=== PATIENT | female | born 2000 | race African-American/Black ===

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

== ENCOUNTER 2018-06-12 11:30 | Inpatient (IN) | payer MEDICAID ==
[~2018-06-12] VITALS: Ht 165.1 cm; Wt 97.1 kg
[~2018-06-12 11:30] MED LIST changes: +ALBUTEROL SULF8.5 GM INH; +PREDNISONE20 MG ORAL; +PROMETHAZINE-C118 M1 ORAL
[2018-06-12 11:32] VITALS: BP 135/77
--- NOTE | 2018-06-12 11:32 | NUR ---
ED Nurse Note: Pt from home and brought in by ambulance in due to SOB x 1 hour. Pt has asthma attack but states she is not taking medications at home. Albuterol 5mg given by EMS en route. Pt still wheezing,pt is AAO x4, ambulatory with SOB at rest. Wheezing noted upon auscultation.
[2018-06-12] MEDS ORDERED: Ipratropium 0.02% Inh Soln 2.5ml UD ONE (11:37)
[2018-06-12] MEDS ORDERED: Albuterol ud Inhalation ONE (11:37)
[2018-06-12] MEDS ORDERED: Solu-MEDROL 125mg Inj IVP ONE (11:45)
[2018-06-12] MEDS ORDERED: Albuterol ud Inhalation HHN ONE ×3 (11:45→13:15)
[2018-06-12] MEDS ORDERED: Ipratropium 0.02% Inh Soln 2.5ml UD HHN ONE (11:45)
--- NOTE | 2018-06-12 11:56 | NUR ---
ED Nurse Note: Blood and flu swab sent.
[2018-06-12 12:07] LABS: BASOPHILS % (AUTO) 0.9 % (0.0-2.0); EOSINOPHILS % (AUTO) 3.2 % (0.0-3.0); HEMATOCRIT 42.1 % (37.0-47.0); HEMOGLOBIN 13.2 G/DL (12.0-16.0); LYMPHOCYTES % (AUTO) 22.7 % (20.0-45.0); MEAN CORPUSCULAR VOLUME 80 FL (80-99); MONOCYTES % (AUTO) 7.3 % (1.0-10.0); PLATELET COUNT 204 K/UL (150-450); RED BLOOD COUNT 5.27 M/UL (4.20-5.40); RED CELL DISTRIBUTION WIDTH 14.8 % (11.6-14.8)
[2018-06-12 12:13] LABS: INR 1.1 (0.9-1.1)
--- NOTE | 2018-06-12 12:14 | Emergency Room Report ---
History of Present Illness General Chief Complaint: Dyspnea/Respdistress Source: Patient Present Illness HPI Patient has 3-4 days of increased dyspnea. She has wheezing. She's been having a cough also. She gets out of breath with just a few steps. She's been intubated when she was in fourth grade. Recently she's been taking care of the asthma before it gets that severe. Paramedics gave the patient a breathing treatment. This helped her quite a bit but she still is quite tight. She denies any fevers or chills. She has been coughing up phlegm that has some color. There is no hemoptysis. She's also complaining about slight pain in her upper back. This is worse with coughing and with deep breathing. Pain in upper back rated 8/10, aching. No fevers, chills, NVD, dysuria, abdominal pain, headache, rashes, joint pain, depression. LNMP 3/2. Not believe she is . Allergies: Coded Allergies: No Known Allergies (Unverified , 02/19/15) Patient History Past Medical History: see triage record Social History: Denies: smoking Social History Narrative norma Last Menstrual Period: 05/2018 Now: No : 0 Reviewed Nursing Documentation: PMH: Agreed; PSxH: Agreed Nursing Documentation-PMH Hx Asthma: Yes Review of Systems All Other Systems: negative except mentioned in HPI Physical Exam Vital Signs Date Time Temp Pulse Resp B/P (MAP) Pulse Ox O2 Delivery O2 Flow Rate FiO2 06/12/18 11:22 97.9 79 16 137/80 97 Room Air 06/12/18 11:43 21 Sp02 EP Interpretation: reviewed, normal General Appearance: GCS 15, mild distress Head: normocephalic Eyes: bilateral eye normal inspection, bilateral eye PERRL ENT: normal pharynx, moist mucus membranes Neck: supple Respiratory: accessory muscle use - minimal, wheezing, expiration, inspiration Cardiovascular #1: regular rate, rhythm, no edema Cardiovascular #2: 2+ radial (R) Gastrointestinal: normal inspection, normal bowel sounds, non tender, no mass, non-distended Musculoskeletal: back normal, normal range of motion, no calf tenderness, Stevenson 's Sign negative Neurologic: alert, oriented x3, grossly normal Psychiatric: mood/affect normal Skin: normal inspection, warm/dry Procedures Critical Care Time Critical Care Time Total Critical Care Time: 30 min bedside evaluation and treatment excludes procedures (EKG). Reason for critical care: status asthmaticus Possible complications: hypotension, hypertension, MD, shock, arrhythmias, metabolic acidosis, end organ damage, respiratory failure. Interventions: steroids, beta agents, magnesium Course: Wheezing with h/o asthma. Aggressive treatment. Multiple exams and repeat treatments. Magnesium administered. Some improvement but still with wheezing. Discussed with admitting MD and also pulmonary provider contracting consultant. Consultations: nursing staff, EMS, RT Performed by: Dr. Murray Tolerated well condition = serious Medical Decision Making Diagnostic Impression: Primary Impression: Status asthmaticus Qualified Codes: J45.52 - Severe persistent asthma with status asthmaticus Additional Impressions: UTI (urinary tract infection) Qualified Codes: N30.00 - Acute cystitis without hematuria Eosinophilia Hypomagnesemia ER Course Patient with h/o asthma with wheezing. DDx: asthma exacerbation, pneumonia, bronchitis, PE. Based on exam, PE less likely. Evaluation with EKG, CXR and labs. Treatment with Solu-Medrol, breathing treatments. Consideration of epinephrine. EKG without injury. CXR no infiltrates. Labs with eosinophilia and low magnesium. Pyuria. Patient still with inspiratory wheezes after initial albuterol and Atrovent. Another albuterol and Atrovent is ordered. Consideration of epinephrine however we'll hold on that. The patient just received Solu-Medrol. Time is noon. Still with wheezes. Repeat Tx and magnesium infusing. 13:10 Antibiotics ordered for UTI. Improved but still with expiratory wheezes. Admit telemetry, Dr. Garcia. Consultation with Dr. Botello. Laboratory Tests Test 06/12/18 11:46 06/12/18 12:35 06/12/18 15:40 White Blood Count 9.0 K/UL (4.8-10.8) Red Blood Count 5.27 M/UL (4.20-5.40) Hemoglobin 13.2 G/DL (12.0-16.0) Hematocrit 42.1 % (37.0-47.0) Mean Corpuscular Volume 80 FL (80-99) Mean Corpuscular Hemoglobin 25.0 PG (27.0-31.0) L Mean Corpuscular Hemoglobin Concent 31.3 G/DL (32.0-36.0) L Red Cell Distribution Width 14.8 % (11.6-14.8) Platelet Count 204 K/UL (150-450) Mean Platelet Volume 8.1 FL (6.5-10.1) Neutrophils (%) (Auto) 66.0 % (45.0-75.0) Lymphocytes (%) (Auto) 22.7 % (20.0-45.0) Monocytes (%) (Auto) 7.3 % (1.0-10.0) Eosinophils (%) (Auto) 3.2 % (0.0-3.0) H Basophils (%) (Auto) 0.9 % (0.0-2.0) Prothrombin Time 11.2 SEC (9.30-11.50) Prothrombin Time INR 1.1 (0.9-1.1) PTT 28 SEC (23-33) Sodium Level 141 MMOL/L (136-145) Potassium Level 3.1 MMOL/L (3.5-5.1) L Chloride Level 103 MMOL/L (98-107) Carbon Dioxide Level 23 MMOL/L (21-32) Anion Gap 15 mmol/L (5-15) Blood Urea Nitrogen 9 mg/dL (7-18) Creatinine 0.9 MG/DL (0.55-1.30) Estimate Glomerular Filtration Rate > 60 mL/min (>60) Glucose Level 98 MG/DL (74-106) Lactic Acid Level 2.90 mmol/L (0.4-2.0) H Calcium Level 9.1 MG/DL (8.5-10.1) Magnesium Level 1.7 MG/DL (1.8-2.4) L Total Bilirubin 0.6 MG/DL (0.2-1.0) Aspartate Amino Transferase (AST) 14 U/L (15-37) L Alanine Aminotransferase (ALT) 13 U/L (12-78) Alkaline Phosphatase 69 U/L (46-116) Total Creatine Kinase 88 U/L (26-308) Pro-B-Type Natriuretic Peptide 153 pg/mL (0-125) H Total Protein 7.5 G/DL (6.4-8.2) Albumin 3.8 G/DL (3.4-5.0) Globulin 3.7 g/dL Albumin/Globulin Ratio 1.0 (1.0-2.7) Urine Color Yellow Urine Appearance Slightly cloudy Urine pH 6.5 (4.5-8.0) Urine Specific [place] 1.015 (1.005-1.035) Urine Protein 1+ (NEGATIVE) H Urine Glucose (UA) Negative (NEGATIVE) Urine Ketones Negative (NEGATIVE) Urine Blood Negative (NEGATIVE) Urine Nitrite Negative (NEGATIVE) Urine Bilirubin Negative (NEGATIVE) Urine Urobilinogen 1 MG/DL (0.0-1.0) H Urine Leukocyte Esterase 3+ (NEGATIVE) H Urine RBC 0-2 /HPF (0 - 2) Urine WBC 30-40 /HPF (0 - 2) H Urine Squamous Epithelial Cells Many /LPF (NONE/OCC) H Urine Bacteria Few /HPF (NONE) Urine HCG, Qualitative Negative (NEGATIVE) Troponin I 0.003 ng/mL (0.000-0.056) Microbiology Date/Time Source Procedure Growth Status 06/12/18 11:46 Nasal Nares Influenza Types A,B Antigen (ADRIAN) - Final Complete EKG Diagnostic Results Rate: normal Rhythm: NSR ST Segments: no acute changes - NSSTTW changes Rhythm Strip Diag. Results EP Interpretation: yes Rhythm: NSR, no PVC's, no ectopy Chest X-Ray Diagnostic Results Chest X-Ray Diagnostic Results : Chest X-Ray Ordered: Yes # of Views/Limited/Complete: 1 View Indication: Shortness of Breath EP Interpretation: Yes Interpretation: no consolidation, no effusion, no pneumothorax Impression: Other Electronically Signed by: Electronically signed by Michael Murray MD Last Vital Signs Date Time Temp Pulse Resp B/P (MAP) Pulse Ox O2 Delivery O2 Flow Rate FiO2 06/12/18 19:36 116 18 97 Room Air 21 06/12/18 14:19 98.9 136/85 Status: improved Disposition: ADMITTED INPATIENT Condition: Serious Referrals: NOT CHOSEN IPA/,REFERRING (PCP) Michael Murray MD Jun 12, 2018 12:14
[2018-06-12 12:29] LABS: ANION GAP 15 mmol/L (5-15); BLOOD UREA NITROGEN 9 mg/dL (7-18); CALCIUM 9.1 MG/DL (8.5-10.1); CARBON DIOXIDE 23 MMOL/L (21-32); CHLORIDE 103 MMOL/L (98-107); CREATININE 0.9 MG/DL (0.55-1.30); POTASSIUM 3.1 MMOL/L (3.5-5.1); SODIUM 141 MMOL/L (136-145)
[2018-06-12 12:37] LABS: ALANINE AMINOTRANSFERASE 13 U/L (12-78); ALBUMIN 3.8 G/DL (3.4-5.0); ALKALINE PHOSPHATASE 69 U/L (46-116); ASPARTATE AMINO TRANSFERASE 14 U/L (15-37); BILIRUBIN,TOTAL 0.6 MG/DL (0.2-1.0); CREATINE KINASE 88 U/L (26-308)
[2018-06-12 12:49] LABS: APPEARANCE,URINE SLIGHTLY CLOUDY; BILIRUBIN, URINE NEGATIVE (NEGATIVE); GLUCOSE, URINE (UA) NEGATIVE (NEGATIVE); KETONES,URINE NEGATIVE (NEGATIVE); LEUKOCYTE ESTERASE ,URINE 3+ (NEGATIVE); NITRITE,URINE NEGATIVE (NEGATIVE); PH,URINE 6.5 (4.5-8.0); PROTEIN,URINE 1+ (NEGATIVE); UROBILINOGEN,URINE 1 MG/DL (0.0-1.0)
--- NOTE | 2018-06-12 12:55 | Diagnostic Imaging Report ---
EXAM: XR Chest, 1 View CLINICAL HISTORY: DYSPNEA TECHNIQUE: Frontal view of the chest. COMPARISON: No relevant prior studies available. FINDINGS: Lungs: No consolidation. Pleural space: Unremarkable. No pneumothorax. Heart: Unremarkable. No cardiomegaly. Mediastinum: Unremarkable. Bones/joints: No acute fracture. IMPRESSION: No acute cardiopulmonary disease.
[2018-06-12 12:59] LABS: COLOR,URINE YELLOW
--- NOTE | 2018-06-12 13:10 | NUR ---
ED Nurse Note: Noted that pt still wheezing and Dr Murray aware.
--- NOTE | 2018-06-12 13:26 | NUR ---
ED Nurse Note: Called RT to ff up with breathing tx.
[2018-06-12 13:27] VITALS: BP 128/72
[2018-06-12] MEDS ORDERED: cefTRIAXone 1 GM in D5W 55 ML IVPB ONE (13:30)
--- NOTE | 2018-06-12 13:35 | NUR ---
ED Nurse Note: called telemetry unit twice and unable to give report. ER charge nurse notified.
--- NOTE | 2018-06-12 13:42 | NUR ---
ED Nurse Note: Report given Angelica RN of telemetry unit.
--- NOTE | 2018-06-12 14:43 | NUR ---
NURSE NOTES: Received report from ED nurse Cathy /RN. Inventory check done, heart monitored placed. IV is intact. Patient is awake and alert, no sign of distress. Bed in low position, Call light and belonging within reach. Will continue plan of care.
[2018-06-12] MEDS: Solu-MEDROL 40mg Inj IVP SCH ×2 (17:39→23:49)
--- NOTE | 2018-06-12 19:15 | NUR ---
HAND-OFF: Report given to Stacey/RN, Patient is in stable condition, Endorsed plan of care.
--- NOTE | 2018-06-12 19:20 | NUR ---
NURSE NOTES: received pt in bed AOx4, no acute distress noted, bed at lowest position, bedside rail up x2, education provided about using call aid when help needed pt verbalized understanding. will continue to monitor.
[2018-06-12] MEDS: Albuterol/Ipratropium 3ml neb HHN SCH (19:25)
[2018-06-12 20:00] VITALS: BP 131/83
--- NOTE | 2018-06-12 23:00 | History and Physical Report ---
DATE OF ADMISSION: 06/12/2018 REASON FOR ADMISSION: 1. Shortness of breath. 2. Asthma exacerbation. HISTORY OF PRESENT ILLNESS: The patient is a 17-year-old female who was in the emergency room complaining of three to four days worsening of shortness of breath and wheezing. The patient says she has had asthma since a young child. She has several flares a year. The patient says she has not been feeling well over the past week and then over the past three to four days, her breathing had worsened. As such, presented to the emergency room for further evaluation and care. No hemoptysis. No nausea, vomiting, or diarrhea. No chest pain. ALLERGIES: None. PAST MEDICAL HISTORY: Asthma. FAMILY HISTORY: Positive for asthma. PAST SURGICAL HISTORY: Noncontributory. REVIEW OF SYSTEMS: NEUROLOGIC: The patient denies headache, change in vision, syncope, or presyncopal episodes. CARDIOVASCULAR: No current chest pain, palpitations, or angina. PULMONARY: Shortness of breath. Nonproductive cough. GASTROINTESTINAL/GENITOURINARY: No change in bowel habits. No nausea, vomiting, or diarrhea. ENDOCRINOLOGY: No night sweats, fevers, or chills. MUSCULOSKELETAL: The patient is feeling weak tired and fatigue. LABORATORY DATA: Labs dated 04/14/2018, sodium 141, potassium 3.1, creatinine 0.9, and magnesium 1.7. AST and ALT within normal limits. White cell count 9, hemoglobin 13.2, and platelet count 204,000. PHYSICAL EXAMINATION: VITAL SIGNS: Blood pressure 136/85, respiratory rate 17, pulse 82, temperature 98.9, and 99% on room air. GENERAL: The patient is awake, alert, in no overt distress. HEENT: Extraocular muscles intact. No lymphadenopathy noted. CARDIOVASCULAR: S1, S2. No murmurs, rubs, or gallops. PULMONARY: The patient is having diffuse expiratory wheezing with fair air movement in all lung meneses. ABDOMEN: Nondistended and nontender. EXTREMITIES: No edema. ASSESSMENT AND PLAN: 1. Asthma exacerbation. At this time, the patient will be initiated on IV steroids along with Levaquin and DuoNeb treatments. Dr. Botello, Pulmonary will be consulted for further evaluation and management. 2. Dehydration. We will continue aggressive hydration. 3. Deep venous thrombosis prophylaxis with SCDs. Reymundo Martinez MD DR: KIARA JOB#: [id number] CC:
[2018-06-13] VITALS: BP 148/84
--- NOTE | 2018-06-13 | NUR ---
NURSE NOTES: pt in bed watching tv. no acute distress no c/o pain at this time. will continue to monitor
[2018-06-13] MEDS: Albuterol/Ipratropium 3ml neb HHN SCH ×3 (00:35→13:02)
[2018-06-13 04:00] VITALS: BP 82/84
[2018-06-13] MEDS: Solu-MEDROL 40mg Inj IVP SCH (06:00)
--- NOTE | 2018-06-13 06:55 | NUR ---
NURSE NOTES: pt reminded in stable condition during my shift. will endorse care plan to incoming nurse
--- NOTE | 2018-06-13 07:19 | NUR ---
NURSE NOTES: Received report from BARBIE Moreland. Patient is in stable condition. No acute distress/SOB noted. Will continue plan of care.
--- NOTE | 2018-06-13 07:37 | NUR ---
HAND-OFF: Report given to BARBIE Cleary.
[2018-06-13 07:43] LABS: HEMATOCRIT 39.6 % (37.0-47.0); HEMOGLOBIN 12.7 G/DL (12.0-16.0); MEAN CORPUSCULAR VOLUME 79 FL (80-99); PLATELET COUNT 252 K/UL (150-450); RED BLOOD COUNT 5.01 M/UL (4.20-5.40); RED CELL DISTRIBUTION WIDTH 14.5 % (11.6-14.8); WHITE BLOOD COUNT 14.4 K/UL (4.8-10.8)
[2018-06-13 08:00] VITALS: BP 143/79
[2018-06-13 08:20] LABS: ANION GAP 11 mmol/L (5-15); BLOOD UREA NITROGEN 7 mg/dL (7-18); CALCIUM 9.4 MG/DL (8.5-10.1); CARBON DIOXIDE 22 MMOL/L (21-32); CHLORIDE 104 MMOL/L (98-107); CREATININE 0.7 MG/DL (0.55-1.30); POTASSIUM 4.2 MMOL/L (3.5-5.1); SODIUM 137 MMOL/L (136-145)
--- NOTE | 2018-06-13 08:40 | Nephrology Progress Note ---
Assessment/Plan Assessment/Plan A/P 1) Asthma Exacerbation- resolved, much improved - DC home on steroid taper and Levaquin 2) Dehydration. Resolved. DC IVFs 3) Tachycardia- likley from steroids and nebs. DC today if cleared by cardiology 4) Leukocytosis- steroid induced. Taper Subjective Date patient seen: Jun 13, 2018 Time patient seen: 08:38 ROS Limited/Unobtainable: No Respiratory: Denies: no symptoms, cough, orthopnea, shortness of breath, SOB with excertion, SOB at rest, sputum, stridor, wheezing, other Allergies: Coded Allergies: No Known Allergies (Unverified , 02/19/15) Subjective Patient feels much better. SOB resolved. Still slightly tachycardic Objective Last 24 Hour Vital Signs Date Time Temp Pulse Resp B/P (MAP) Pulse Ox O2 Delivery O2 Flow Rate FiO2 06/13/18 08:33 97 18 99 Room Air 21 06/13/18 08:21 88 18 96 Room Air 06/13/18 04:00 98.2 89 22 82/84 (83) 98 06/13/18 00:59 99 18 98 Room Air 21 06/13/18 00:38 94 18 96 Room Air 06/13/18 00:00 96 06/13/18 00:00 98.4 105 18 148/84 (105) 93 06/12/18 22:51 Room Air Room Air 06/12/18 20:00 99.0 100 20 131/83 (99) 95 06/12/18 20:00 112 06/12/18 19:36 116 18 97 Room Air 06/12/18 19:27 103 18 96 Room Air 21 06/12/18 16:57 Room Air Room Air 06/12/18 16:00 127 06/12/18 16:00 Room Air Room Air 06/12/18 14:35 114 06/12/18 14:19 98.9 82 17 136/85 99 Room Air 06/12/18 14:04 99 21 98 Room Air 06/12/18 13:50 97 20 96 Room Air 21 06/12/18 13:27 98.7 85 19 128/72 98 Room Air 06/12/18 12:29 102 21 96 Room Air 21 06/12/18 12:19 93 21 97 Room Air 21 06/12/18 12:02 103 21 93 Room Air 21 06/12/18 11:43 102 21 96 Room Air 21 06/12/18 11:43 102 21 Room Air 21 06/12/18 11:32 79 16 Room Air 06/12/18 11:32 98.5 76 22 135/77 98 Room Air 06/12/18 11:22 97.9 79 16 137/80 97 Room Air Intake and Output 06/12/18 06/13/18 19:00 07:00 Intake Total 1360 ml 525 ml Balance 1360 ml 525 ml Intake Oral 360 ml IV Total 1000 ml 525 ml # Voids 2 3 # Bowel Movements 1 Laboratory Tests 06/12/18 11:46: White Blood Count 9.0, Red Blood Count 5.27, Hemoglobin 13.2, Hematocrit 42.1, Mean Corpuscular Volume 80, Mean Corpuscular Hemoglobin 25.0L, Mean Corpuscular Hemoglobin Concent 31.3L, Red Cell Distribution Width 14.8, Platelet Count 204, Mean Platelet Volume 8.1, Neutrophils (%) (Auto) 66.0, Lymphocytes (%) (Auto) 22.7, Monocytes (%) (Auto) 7.3, Eosinophils (%) (Auto) 3.2H, Basophils (%) (Auto ) 0.9, Prothrombin Time 11.2, Prothromb Time International Ratio 1.1, Activated Partial Thromboplast Time 28, Sodium Level 141, Potassium Level 3.1L, Chloride Level 103, Carbon Dioxide Level 23, Anion Gap 15, Blood Urea Nitrogen 9, Creatinine 0.9, Estimat Glomerular Filtration Rate > 60, Glucose Level 98, Lactic Acid Level 2.90H, Calcium Level 9.1, Magnesium Level 1.7L, Total Bilirubin 0.6, Aspartate Amino Transf (AST/SGOT) 14L, Alanine Aminotransferase ( ALT/SGPT) 13, Alkaline Phosphatase 69, Total Creatine Kinase 88, Pro-B-Type Natriuretic Peptide 153H, Total Protein 7.5, Albumin 3.8, Globulin 3.7, Albumin/ Globulin Ratio 1.0 06/12/18 12:35: Urine Color Yellow, Urine Appearance Slightly cloudy, Urine pH 6.5, Urine Specific [place] 1.015, Urine Protein 1+H, Urine Glucose (UA) Negative, Urine Ketones Negative, Urine Blood Negative, Urine Nitrite Negative, Urine Bilirubin Negative, Urine Urobilinogen 1H, Urine Leukocyte Esterase 3+H, Urine RBC 0-2, Urine WBC 30-40H, Urine Squamous Epithelial Cells ManyH, Urine Bacteria Few, Urine HCG, Qualitative Negative 06/12/18 15:40: Troponin I 0.003 06/13/18 02:30: Chlamydia trachomatis RNA [Pending], Neisseria gonorrhoeae RNA [Pending] 06/13/18 06:50: White Blood Count 14.4#H, Red Blood Count 5.01, Hemoglobin 12.7, Hematocrit 39.6 , Mean Corpuscular Volume 79L, Mean Corpuscular Hemoglobin 25.3L, Mean Corpuscular Hemoglobin Concent 32.0, Red Cell Distribution Width 14.5, Platelet Count 252, Mean Platelet Volume 8.6, Neutrophils (%) (Auto) , Lymphocytes (%) ( Auto) , Monocytes (%) (Auto) , Eosinophils (%) (Auto) , Basophils (%) (Auto) , Neutrophils % (Manual) [Pending], Lymphocytes % (Manual) [Pending], Platelet Estimate [Pending], Platelet Morphology [Pending], Sodium Level 137, Potassium Level 4.2, Chloride Level 104, Carbon Dioxide Level 22, Anion Gap 11, Blood Urea Nitrogen 7, Creatinine 0.7, Estimat Glomerular Filtration Rate > 60, Glucose Level 124H, Calcium Level 9.4 Height (Feet): 5 Height (Inches): 5.00 Weight (Pounds): 214 General Appearance: no apparent distress, alert EENT: normal ENT inspection Neck: normal alignment, supple Cardiovascular: tachycardia Respiratory/Chest: lungs clear, normal breath sounds Abdomen: non tender, soft Edema: no edema noted Arm (L), no edema noted Arm (R), no edema noted Leg (L), no edema noted Leg (R), no edema noted Pedal (L), no edema noted Pedal (R), no edema noted Generalized Reymundo Martinez MD Jun 13, 2018 08:40
--- NOTE | 2018-06-13 08:42 | Discharge Instructions ---
Discharge Instructions Discharge Instructions Services at Discharge: day care Diet: regular Resume Normal Activity?: Yes Activity: light activity Follow Up Orders Follow up PCP 1 week Complete Antibiotics and steroid taper For Congestive Heart Failure Reminder Report to your physician any weight gain of 5 pounds or more in one week. Reymundo Martinez MD Jun 13, 2018 08:42
[2018-06-13] MEDS ORDERED: Levofloxacin 500mg tab ORAL SCH (09:00)
--- NOTE | 2018-06-13 10:21 | Consultation ---
Consult Note Consult Note REASON FOR CONULTATION: 1. Shortness of breath. 2. Asthma exacerbation. HISTORY OF PRESENT ILLNESS: The patient is a 17-year-old female who was in the emergency room complaining of three to four days worsening of shortness of breath and wheezing. The patient says she has had asthma since a young child. She has several flares a year. The patient says she has not been feeling well over the past week and then over the past three to four days, her breathing had worsened. As such, presented to the emergency room for further evaluation and care. No hemoptysis. No nausea, vomiting, or diarrhea. No chest pain. Has been using albuterol only. Does not want inhaled steroids. ALLERGIES: None. PAST MEDICAL HISTORY: Asthma. FAMILY HISTORY: Positive for asthma. PAST SURGICAL HISTORY: Noncontributory. REVIEW OF SYSTEMS: NEUROLOGIC: The patient denies headache, change in vision, syncope, or presyncopal episodes. CARDIOVASCULAR: No current chest pain, palpitations, or angina. PULMONARY: Shortness of breath. Nonproductive cough. GASTROINTESTINAL/GENITOURINARY: No change in bowel habits. No nausea, vomiting, or diarrhea. ENDOCRINOLOGY: No night sweats, fevers, or chills. MUSCULOSKELETAL: The patient is feeling weak tired and fatigue. LABORATORY DATA: Labs dated 04/14/2018, sodium 141, potassium 3.1, creatinine 0.9, and magnesium 1.7. AST and ALT within normal limits. White cell count 9, hemoglobin 13.2, and platelet count 204,000. PHYSICAL EXAMINATION: VITAL SIGNS: Blood pressure 136/85, respiratory rate 17, pulse 82, temperature 98.9, and 99% on room air. GENERAL: The patient is awake, alert, in no overt distress. HEENT: Extraocular muscles intact. No lymphadenopathy noted. CARDIOVASCULAR: S1, S2. No murmurs, rubs, or gallops. PULMONARY: The patient is having diffuse expiratory wheezing with equal air movement in all lung meneses. ABDOMEN: Nondistended and nontender. EXTREMITIES: No edema. ASSESSMENT AND PLAN: 1. Asthma exacerbation. Agree with IV steroids along with Levaquin and DuoNeb treatments. 2. Dehydration. Continue aggressive hydration. 3. Deep venous thrombosis prophylaxis with SCDs. OK to dc home on Po steroid taper and abx Added Proair and Advair Orville Celestin MD, MD Jun 13, 2018 10:21
--- NOTE | 2018-06-13 13:27 | NUR ---
NURSE NOTES: Discharge instruction given and patient verbalized understanding. Inventory check done. Removed monitoring manager and IV line. Patient is in stable condition. No distress/SOB noted. Patient denies any pain discomfort at this time. Patient is discharged with stable condition.
--- NOTE | 2018-06-13 13:44 | NUR ---
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 PLAN OF CARE: PULMO CONSULT 06/13/2018 SI:STATUS ASTHMATICUS T 97.8 HR 89 RR 17 B/P 143/79 SATS 96% ON RA WBC 14.4 GLU 124 IS: IVF @ 100 mL/HR SOLU MEDROL IV Q6H LEVAQUIN PO Q6H K DUR PO X1 DUO NEB HHN Q6H TELE STATUS DCP: PATIENT TO BE DISCHARGED TO HOME ONCE MEDICALLY CLEARED. PLAN OF CARE: DISCHARGE Addendum: 06/13/18 at 1849 by Leonila Mcdaniel CM [employer]
[2018-06-13] MEDS ORDERED: Solu-MEDROL 40mg Inj IVP SCH (18:00)
--- NOTE | 2018-06-14 17:23 | Discharge Summary ---
Discharge Summary Discharge Summary _ DATE OF ADMISSION: 06/12/2018 DATE OF DISCHARGE: 06/13/2018 DISCHARGED BY: Dr. Martinez REASON FOR ADMISSION: 17 years old female with past medical history of asthma, presented to emergency room complaining of shortness of breath and wheezing for the last 3 to 4 days. Patient reported having asthma since childhood. She usually gets several flare ups a year. Patient reported not feeling well over the past week and over the last few days her breathing had worsened. Patient presented to emergency room for further evaluation. Patient denied hemoptysis. She denied fever and chills. She denied chest pain. She denied nausea, vomiting, and diarrhea. Upon evaluation vital signs were stable. Laboratory workup revealed potassium 3.1. Magnesium 1.7. No leukocytosis, hemoglobin 13.2. Lactic acid 2.9. Troponin negative. Chest x-ray revealed no acute cardiopulmonary pathology. Patient admitted for further management. CONSULTANTS: pulmonary Dr. Botello [facility]: Patient admitted to medical surgical floor. Patient started on aggressive hydration with close monitoring of renal parameters and electrolytes. Potassium and magnesium replaced. Patient started on intravenous steroids with gradual tapering. Patient started on empiric antibiotics. Credit Risk Officer followed. Rapid influenza screen test was negative. Supplemental oxygen provided as needrf to keep pulse oximetry above 92%. Pulmonary toilet with bronchodilator provided [id number] and as needed. Antitussive provided as needed. DVT prophylaxis provided. Patient had sinus tachycardia on monitor, likely due to bronchodilator therapy and possibly steroids. Tachycardia resolved the next day. Patient clinically improved over 24 hours. Pulse oximetry was stable on room air prior to discharge. Wheezing significantly decreased. No shortness of breath. Patient was stable for discharge home oral steroids and inhalers Advair as a maintenance and Pro-air on as needed basis. Due to rapid and unexpected improvement in patient condition, patient was discharged in 1 day. FINAL DIAGNOSES: Asthma exacerbation Dehydration Tachycardia-resolved DISCHARGE MEDICATIONS: See Medication Reconciliation list. DISCHARGE INSTRUCTIONS: Patient was discharged home. Follow up with primary care provider in one week. I have been assigned to dictate discharge summary for this account. I was not involved in the patient's management. Joanne Figueredo NP Jun 14, 2018 17:23
--- NOTE | 2018-06-15 19:14 | Cardiology Report ---
APPROVED REPORT EKG Measurement Heart [id number] Sinus rhythm with marked sinus arrhythmia Nonspecific T wave abnormality Abnormal ECG
== END 2018-06-13 13:30 | disposition home or self-care (01) | DRG 141 ==
LOC: EDBD 11:30 → EMR 12:00 → 2E 12:13 → EDBEDREQ 12:39
DX: J45.901 Unspecified asthma with (acute) exacerbation (principal); D72.829 Elevated white blood cell count, unspecified; E86.0 Dehydration; R00.0 Tachycardia, unspecified; T38.0X5A Adverse effect of glucocorticoids and synthetic analogues, initial encounter
CPT/HCPCS: 36415; 71045; 80048; 80053; 81003; 81025; 82550; 83605; 83735; 83880; 84484; 85007; 85025; 85610; 85730; 86710; 87086; 87491; 87590; 93005; 94640; 94664; 96361; 96365; 96375; 99285; J7620; J8499